=== PATIENT | female | born 1995 | race Caucasian/White ===

== ENCOUNTER 2019-01-08 21:27 | Emergency (ER) | payer BC ==
--- NOTE | 2019-01-08 21:40 | UC ---
Respiratory Complaint HPI - HPI Summary HPI Summary: 23 yo female presents with sinus pain/pressure/congestion, sore throat, right ear pain, and dry cough over the last week. She has been taking dayquill and nyquill with mild relief. She denies fever, chills, SOB, rash, abdominal pain, n /v - History of Current Complaint Chief Complaint: UCRespiratory Stated Complaint: RESP COMPLAINT Time Seen by Provider: 01/08/19 21:39 Hx Obtained From: Patient Hx Last Menstrual Period: 12/29/18 Onset/Duration: Gradual Onset Severity Initially: Mild Severity Currently: Moderate Pain Intensity: 7 Pain Scale Used: 0-10 Numeric - Allergies/Home Medications Allergies/Adverse Reactions: Allergies Allergy/AdvReac Type Severity Reaction Status Date / Time No Known Allergies Allergy Verified 01/08/19 21:37 Home Medications: Home Medications Cetirizine HCl [Zyrtec] 10 mg PO 01/08/19 [History] Escitalopram Oxalate [Lexapro] 20 mg PO 01/08/19 [History] PMH/Surg Hx/FS Hx/Imm Hx Psychological History: Anxiety, Depression - Surgical History Surgical History: None - Family History Known Family History: Positive: Non-Contributory - Social History Occupation: Student Lives: Dormitory/Roommates Alcohol Use: Rare Substance Use Type: Marijuana Substance Use Comment - Amount & Last Used: weekly Smoking Status (MU): Never Smoked Tobacco Review of Systems All Other Systems Reviewed And Are Negative: No Constitutional: Positive: Negative Skin: Positive: Negative Eyes: Positive: Negative ENT: Positive: Sore Throat, Ear Ache, Nasal Discharge, Sinus Congestion, Sinus Pain/Tenderness Respiratory: Positive: Cough Cardiovascular: Positive: Negative Gastrointestinal: Positive: Negative Neurological: Positive: Negative Psychological: Positive: Negative Physical Exam - Summary Physical Exam Summary: GENERAL: NAD. WDWN. No pain distress. SKIN: No rashes, sores, lesions, or open wounds. HEENT: Head: AT/NC Eyes: EOM intact. Conjunctiva clear without inflammation or discharge. Ears: Hearing grossly normal. RIGHT TM with mild erythema and bulging. No canal edema or drainage. LEFT TM WNL and intact Nose: Nasal mucosa pink and moist. TTP maxillary and frontal sinus. Throat: Posterior oropharynx without exudates, erythema, or tonsillar enlargement. Uvula midline. NECK: Supple. Nontender. No lymphadenopathy. CHEST: CTAB. No r/r/w. No accessory muscle use. Breathing comfortably and in no distress. CV: RRR. Without m/r/g. Pulses intact. NEURO: Alert. PSYCH: Age appropriate behavior. Triage Information Reviewed: Yes Vital Signs: Initial Vital Signs Temp 100.4 F 01/08/19 21:34 Pulse 80 01/08/19 21:34 Resp 18 01/08/19 21:34 BP 109/71 01/08/19 21:34 Pulse Ox 97 01/08/19 21:34 Vital Signs Reviewed: Yes Respiratory Course/Dx - Course Course Of Treatment: Right otitis media Sinusitis - Differential Dx/Diagnosis Provider Diagnosis: Right otitis media, Sinusitis Discharge ED - Sign-Out/Discharge Documenting (check all that apply): Patient Departure All imaging exams completed and their final reports reviewed: No Studies - Discharge Plan Condition: Stable Disposition: HOME Prescriptions: Amoxicillin/Clavulanate TAB* [Augmentin TAB 875*] 875 mg PO BID #14 tab Patient Education Materials: Sinusitis (ED), Ear Infection (ED) Referrals: No Primary Care Phys,NOPCP [Primary Care Provider] - Additional Instructions: If you develop a fever, shortness of breath, chest pain, new or worsening symptoms - please call your PCP or go to the ED immediately. Continue taking your over the counter medication - Billing Disposition and Condition Condition: STABLE Disposition: Home
[2019-01-08] MEDS ORDERED: Amoxicillin/Clavulanate TAB* 875 MG PO ONE (21:43)
== END 2019-01-08 21:55 | disposition home or self-care (01) ==
LOC: UCEAST 21:27
DX: J32.9 Chronic sinusitis, unspecified (principal); H66.91 Otitis media, unspecified, right ear; F41.9 Anxiety disorder, unspecified; F32.9 Major depressive disorder, single episode, unspecified
CPT/HCPCS: 99202; A9270-GY; G0463

== ENCOUNTER 2019-03-29 20:54 | Emergency (ER) | payer BC ==
[2019-03-29 21:45] LABS: ABS Eosinophils 0.1 10^3/ul (0-0.6); ABS Lymphocytes 1.4 10^3/ul (1.0-4.8); ABS Monocytes 0.7 10^3/ul (0-0.8); ABS Neutrophils 2.6 10^3/ul (1.5-7.7); Eosinophil % 2.6 %; Hematocrit 42 % (35-47); Hemoglobin 14.7 g/dL (12.0-16.0); Lymphocyte % 29.6 %; Mean Corpuscular HGB Conc 35 g/dL (31-36); Mean Corpuscular Hemoglobin 32 pg (27-31); Mean Corpuscular Volume 90 fL (80-97); Mean Platelet Volume 7.4 fL (7.4-10.4); Nucleated Red Blood Cells % 0.1; Platelet Count 213 10^3/uL (150-450); Red Blood Count 4.63 10^6 /uL (3.70-4.87); Red Cell Distribution Width 13 % (10-15); White Blood Count 4.9 10^3/uL (3.5-10.8)
--- NOTE | 2019-03-29 21:55 | ED ---
GI/ HPI - HPI Summary HPI Summary: Patient is a 23 y/o F presenting to [facility] with complaints of dysuria, hematuria , bilateral flank pain and abdominal pain. Nausea, diarrhea, tremors, subjective fever, chills, dizziness, and vaginal irritation are also endorsed. Patient states that she has been experiencing dysuria for the past few days. She had initially attributed this Sx to the fact that she was having increased frequency of sexual intercourse with her male partner. However, two days ago, , she had onset of hemturia, bilateral flank pain, and abdominal pain. She additionally has complaints of back pain but notes that she has two herniated discs. Abdominal pain is located at RUQ and periumbilical areas. Vomiting is denied. She notes that her dysuria was worse today, 03/29/19. Patient went to today, UA is reported to have been inconclusive. She took AZO after her UC visit but reports no relief in Sx. She denies similar previous episodes. Patient had recently finished an antibiotic for ear and sinus infection. However, she notes that she did not finish the last 3-4 days of her 10 day antibiotic. Patient additionally notes that she is prescribed Lexapro but has not taken this medication for the past 5-6 months. NKDA noted. PSHx is denied. FMHx of kidney stones in mother. She endorses rare alcohol usage and some marijuana usage but denies tobacco and any other substance usage. Home medications and allergies are reviewed. - History of Current Complaint Chief Complaint: EDFlankPain Time Seen by Provider: 03/29/19 21:06 Stated Complaint: FLANK PAIN , Hx Obtained From: Patient Hx Last Menstrual Period: 12/29/18 Onset/Duration: Started Days Ago, Still Present, Worse Since Timing: Lasting Days Severity: Severe Current Severity: Severe Pain Intensity: 7 Location of Pain: RUQ, Flank, Umbilical Associated Signs and Symptoms: Positive: Back Pain, Dizziness, Nausea, Fever, Hematuria, Dysuria, Flank Pain, Chills. Negative: Vomiting Additional Signs & Symptoms: Positive: Other: - vaginal irritation Alleviating Factor(s): Nothing - Allergy/Home Medications Allergies/Adverse Reactions: Allergies Allergy/AdvReac Type Severity Reaction Status Date / Time No Known Allergies Allergy Verified 03/29/19 20:57 PMH/Surg Hx/FS Hx/Imm Hx Respiratory History: Reports: Hx Asthma Sensory History: Denies: Hx Legally Blind, Hx Deafness Opthamlomology History: Denies: Hx Legally Blind EENT History: Denies: Hx Deafness Infectious Disease History: No Infectious Disease History: Denies: Traveled Outside the [place] in Last 30 Days - Family History Known Family History: Positive: Renal Disease - kidney stones, mother - Social History Alcohol Use: Rare Substance Use Type: Reports: Marijuana Substance Use Comment - Amount & Last Used: weekly Smoking Status (MU): Never Smoked Tobacco Review of Systems - ROS Summary Review of Systems Summary: Home Medications Medication Instructions Recorded Confirmed Type Amoxicillin/Clavulanate TAB* 875 mg PO BID #14 tab 01/08/19 Rx [Augmentin TAB 875*] Cetirizine HCl [Zyrtec] 10 mg PO 01/08/19 History Escitalopram Oxalate [Lexapro] 20 mg PO 01/08/19 History Sulfamethox/Trimethoprim DS* 1 tab PO BID #14 tab 03/29/19 Rx [Bactrim DS 800/160 TAB*] Constitutional: Other - positive - tremors Positive: Fever, Chills Positive: Abdominal Pain, Diarrhea, Nausea. Negative: Vomiting Genitourinary: Other - positive - vaginal irritation Positive: dysuria, flank pain, hematuria Musculoskeletal: Other - positive - back pain Neurological: Other - positive - dizziness All Other Systems Reviewed And Are Negative: Yes Physical Exam - Summary Physical Exam Summary: General: Well-developed, Well-nourished female. No acute distress. HEENT: Normocephalic, Atraumatic. Eyes: Conjuctiva normal, PERRL. Ears: TMs within normal limits. Nares: (-) discharge, (-) erythema. Oropharynx: Clear, mucous membranes moist, (-) exudates. Neck: Soft, FROM, (-) lymphadenopathy, (-) thyromegaly, (-) JVD. Cardiovascular: Normal sinus rhythm, (-) murmur. Lungs: Clear to auscultation bilaterally (-) wheezes, (-) rales, (-) rhonchi. Abdomen: Soft, lower abdominal tenderness, non-distended, (-) organomegaly, normal bowel sounds. Back: (-) CVA tenderness Extremities: No edema. Skin: Warm, dry, (-) rash. Neuro: Alert and oriented x3, no focal deficits. Psychiatric: Mood normal, affect normal. Triage Information Reviewed: Yes Vital Signs On Initial Exam: Initial Vitals Temp Pulse Resp BP Pulse Ox 100.7 F 112 18 120/83 98 03/29/19 20:57 03/29/19 20:57 03/29/19 20:57 03/29/19 20:57 03/29/19 20:57 Vital Signs Reviewed: Yes Procedures - Sedation Patient Received Moderate/Deep Sedation with Procedure: No Diagnostics - Vital Signs Vital Signs Temp Pulse Resp BP Pulse Ox 03/29/19 20:57 100.7 F 112 18 120/83 98 - Laboratory Result Diagrams: 03/29/19 21:40 03/29/19 21:40 Lab Statement: Any lab studies that have been ordered have been reviewed, and results considered in the medical decision making process. GIGU Course/Dx - Course Course Of Treatment: 23 arnulfo old female with frequency, dysuria and hematuria. no flank pain. no fever or vomiting. urine + UTI. patient rstarted on Bactrim. follow up with pcp, followup with PCP, sooner for any worsening symptoms. - Diagnoses Provider Diagnoses: UTI (urinary tract infection) Discharge ED - Sign-Out/Discharge Documenting (check all that apply): Patient Departure - discharge - Discharge Plan Condition: Stable Disposition: HOME Prescriptions: Sulfamethox/Trimethoprim DS* [Bactrim DS 800/160 TAB*] 1 tab PO BID #14 tab Patient Education Materials: Urinary Tract Infection in Women (ED) Referrals: [facility] [Primary Care Provider] - 3 Days Additional Instructions: PLEASE RETURN TO ED FOR ANY NEW OR WORSENING SYMPTOMS. PLEASE FOLLOW UP WITH YOUR PRIMARY CARE PHYSICIAN WITHIN THREE DAYS. - Billing Disposition and Condition Condition: STABLE Disposition: Home - Attestation Statements Document Initiated by Jay: Yes Documenting Scribe: DORA WALKER Provider For Whom Jay is Documenting (Include Credential): BRIGETTE ABRAHAM MD Scribe Attestation: IDORA, scribed for BRIGETTE ABRAHAM MD on 03/29/19 at [id number]. Scribe Documentation Reviewed: Yes Provider Attestation: The documentation as recorded by the DORA perez accurately reflects the service I personally performed and the decisions made by me, BRIGETTE ABRAHAM MD Status of Scribe Document: Viewed
[2019-03-29 21:56] LABS: INR 1.15 (0.82-1.09)
[2019-03-29 21:58] LABS: Urine Appearance Clear; Urine Bilirubin Negative (Negative); Urine Blood 1+ (Negative); Urine Glucose 1+(50 mg/dL) (Negative); Urine Ketones Negative (Negative); Urine Nitrite Positive (Negative); Urine Protein 2+(100 mg/dL) (Negative); Urine Specific Gravity 1.018 (1.010-1.030); Urine Urobilinogen Positive (Negative)
[2019-03-29 21:59] LABS: Urine Color Red
[2019-03-29 22:01] LABS: ALT 12 U/L (7-52); AST 18 U/L (13-39); Albumin 4.1 g/dL (3.2-5.2); Albumin/Globulin Ratio 1.6 (1-3); Alkaline Phosphatase 84 U/L (34-104); Anion Gap 7 mmol/L (2-11); BUN/Creatinine Ratio 12.8 (8-20); Blood Urea Nitrogen 10 mg/dL (6-24); C Reactive Protein 13.92 mg/L (<8.01); CO2 Carbon Dioxide 27 mmol/L (22-32); Chloride 103 mmol/L (101-111); EGFR African American 112.8 (>60); EGFR Non-African American 93.2 (>60); Globulin 2.6 g/dL (2-4); Glucose 122 mg/dL (70-100); Potassium 3.6 mmol/L (3.5-5.0); Sodium 137 mmol/L (135-145); Total Protein 6.7 g/dL (6.4-8.9)
[2019-03-29 22:04] LABS: Urine Bacteria Absent (Absent); Urine Red Blood Cell 3+(>10/hpf) (Absent); Urine Squamous Epithelial Cell Present (Absent); Urine White Blood Cell 3+(>20/hpf) (Absent)
[2019-03-29 22:08] LABS: HCG Pregnancy < 0.60 mIU/mL
[2019-03-29] MEDS ORDERED: Sulfamethox/Trimethoprim DS 800/160* TAB PO ONE (22:13)
[2019-03-29 22:30] VITALS: BP 123/72
--- NOTE | 2019-04-01 05:39 | ED ---
Imaging and Labs Follow Up Follow Up Type: Labs/Cultures Labs/Culture Result: Urine culture shows 25-50,000. Group A strep, 1-10,000 normal nissa. Nothing further At this time. Patient Communication/Plan: Pt treated appropriately with bactrim. Nothing further at this time Provider Diagnoses: UTI (urinary tract infection)
== END 2019-03-29 22:30 | disposition home or self-care (01) ==
LOC: ED 20:54
DX: N39.0 Urinary tract infection, site not specified (principal); J45.909 Unspecified asthma, uncomplicated; Z79.899 Other long term (current) drug therapy
CPT/HCPCS: 36415; 80053; 81003; 81015; 83605; 84702; 85025; 85610; 86140; 87077; 87086; 99282; A9270-GY